=== PATIENT | female | born 1995 | race Caucasian/White ===

== ENCOUNTER 2017-01-09 11:29 | Emergency (ER) | payer OTHER ==
[2017-01-09 11:45] VITALS: BP 128/86
--- NOTE | 2017-01-09 12:23 | ED Physician Documentation ---
History of Present Illness - Stated complaint Stated Complaint: LT FINGER LAC - Chief complaint Chief Complaint: Laceration - Additonal information Additional information: hx from pt lac to left index with a serrated knife cutting bread tdap UTD Review of Systems Skin: reports: Laceration (s) PD PAST MEDICAL HISTORY - Past Medical History Past Medical History: Yes Psych: Depression - Past Surgical History Past Surgical History: No - Present Medications Home Medications: Ambulatory Orders Medication Instructions Recorded Confirmed Ibuprofen [Motrin] 600 mg PO Q6H PRN #30 tab 08/29/13 01/09/17 Norethindrone AC-Eth Estradiol 1 each PO DAILY 08/29/13 01/09/17 [Junel] Citalopram [CeleXA] 10 mg PO DAILY 01/09/17 01/09/17 - Allergies Allergies/Adverse Reactions: Allergies Allergy/AdvReac Type Severity Reaction Status Date / Time Penicillins Allergy Unknown Verified 08/29/13 08:48 - Social History Does the pt smoke?: No Smoking Status: Never smoker Does the pt drink ETOH?: No Does the pt have substance abuse?: No - Immunizations Immunizations are current?: Yes - POLST Patient has POLST: No PD ED PE NORMAL - Vitals Vital signs reviewed: Yes - Extremities Extremities: Other (curved avulsion flap type lac to palamr aspect distal pahalnge left hand, MSV and tendon intact, no FB) Results - Vitals Vitals: Vital Signs - 24 hr 01/09/17 11:42 Temperature 36.3 C L Heart Rate 77 Respiratory 16 Rate Blood Pressure 128/86 H O2 Saturation 100 Oxygen O2 Source Room air Departure - Departure Disposition: 01 Home, Self Care Clinical Impression: Laceration Condition: Good Instructions: ED Laceration Ext Skin Glue Comments: Wear the splint as needed verito protect the finger The glue will gradually flake off over a week to 10 days May wash hands as usual but do not apply lotion or ointment to the wound as that will dissolve the glue Return for any signs of infection Forms: Activity restrictions
== END 2017-01-09 12:30 | disposition home or self-care (01) ==
LOC: ED 11:29
DX: S61.211A Laceration without foreign body of left index finger without damage to nail, initial encounter (principal); W26.0XXA Contact with knife, initial encounter; Y93.89 Activity, other specified
CPT/HCPCS: 99282; 99283